=== PATIENT | female | born 1970 | race Caucasian/White ===

== ENCOUNTER 2024-12-13 04:40 | Inpatient (IN) | payer OTHER ==
[~2024-12-13] VITALS: Ht 157.5 cm; Wt 111.1 kg
[2024-12-13] MEDS ORDERED: hydrALAZINE HCL IV 20 MG VIAL ONE (05:25)
[2024-12-13] MEDS: hydrALAZINE HCL IV 20 MG VIAL IV ONE (05:29)
[2024-12-13 05:37] LABS: BASOPHILS # (AUTO) 0.1 K/uL (0.0-0.2); BASOPHILS % (AUTO) 1.2 % (0.0-2.0); EOSINOPHILS % (AUTO) 0.5 % (0.0-6.0); HEMATOCRIT 46 % (33-45); HEMOGLOBIN 15.4 g/dL (11.5-14.8); LYMPHOCYTES # (AUTO) 1.1 K/uL (0.8-4.8); LYMPHOCYTES % (AUTO) 15.2 % (20.0-44.0); MEAN CORPUSCULAR HEMOGLOBIN 30 PG (26.0-33.0); MEAN CORPUSCULAR HGB CONC 34 g/dl (31.0-36.0); MEAN CORPUSCULAR VOLUME 89 fL (82-100); MONOCYTES # (AUTO) 0.4 K/uL (0.1-1.30); MONOCYTES % (AUTO) 6.2 % (2.0-12.0); NEUTROPHILS # (AUTO) 5.3 K/uL (1.8-8.9); NEUTROPHILS % (AUTO) 76.9 % (43.0-81.0); PLATELET COUNT (AUTO) 142 K/uL (150-450); RED BLOOD CELL COUNT(AUTO) 5.13 MIL/uL (4.0-5.2); RED CELL DISTRIBUTION WIDTH 13.6 % (11.5-15.0); WHITE BLOOD COUNT (AUTO) 6.9 K/uL (4.3-11.0)
[2024-12-13 05:48] LABS: CALCIUM, SERUM 8.4 mg/dL (8.5-10.1); CREATININE 0.7 mg/dL (0.6-1.3); POTASSIUM 3.5 mmol/L (3.5-5.1)
[2024-12-13 06:00] LABS: ALBUMIN 3.7 g/dL (3.4-5.0); BILIRUBIN,TOTAL 0.5 mg/dL (0.2-1.0); TOTAL PROTEIN, SERUM 7.3 g/dL (6.4-8.2)
[2024-12-13 06:44] LABS: ABG BASE EXCESS -3.3 mmol/L (-2.0-3.0); ABG OXYGEN SATURATION 92.8 % (94.0-98.0); ABG PCO2 29.7 mmHg (32.0-45.0); ABG PH 7.437 (7.350-7.450); ABG PO2 65.6 mmHg (83.0-108.0); ABG TOTAL HEMOGLOBIN 15.1 G/dL (12.0-16.0); COHb 0.1 % (0.5-1.5); MetHb 0.2 % (0.0-1.5); O2Hb 92.5 % (94.0-97.0); SITE, ABG RIGHT RADIAL
[2024-12-13 08:23] LABS: APPEARANCE,URINE CLEAR (CLEAR); BILIRUBIN,URINE NEGATIVE (NEGATIVE); BLOOD, URINE NEGATIVE Ery/uL (NEGATIVE); COLOR,URINE YELLOW (YELLOW); KETONES,URINE NEGATIVE (NEGATIVE); LEUKOCYTE ESTERASE ,URINE NEGATIVE (NEGATIVE); NITRITE, URINE NEGATIVE (NEGATIVE); PH,URINE 6.5 (5.0-8.0); PROTEIN,URINE 3+ mg/dl (NEGATIVE); UGLUCOSE TRACE mg/dL (NEGATIVE); UROBILINOGEN,URINE 0.2 EU/dL (0.2)
[2024-12-13] MEDS ORDERED: ENALAPRILAT INJ (1.25 MG/ML) 1.25 MG/ML VIAL IV ONE (08:25)
[2024-12-13] MEDS: ENALAPRILAT DIHYD. (2.5MG/2ML) 1.25 MG/ML VIAL IV ONE (08:28)
[2024-12-13 08:45] LABS: ADD URINE CULTURE YES; BACTERIA,URINE Few /HPF (None Seen); RBC,URINE 0-2 /HPF (0-2)
[2024-12-13] MEDS ORDERED: AMLODIPINE BESYLATE 10 MG TABLET ONE (09:10)
[2024-12-13] MEDS: AMLODIPINE BESYLATE 5 MG TABLET PO ONE (09:14)
[2024-12-13] MEDS ORDERED: CEFTRIAXONE 1GM BAG (ER ONLY) 50 ML IV ONE (09:14)
[2024-12-13] MEDS: CEFTRIAXONE 1GM BAG (ER ONLY) 1 GM/50 ML PIGGYBACK IV ONE (09:14)
[2024-12-13] MEDS: CEFTRIAXONE 1 G in IV D5W 50 ML IV ONE (09:26)
[2024-12-13] MEDS ORDERED: ASPIRIN 325 MG TABLET ONE (10:26)
[2024-12-13] MEDS: ASPIRIN 325 MG TABLET PO ONE (10:28)
[2024-12-13 14:15] VITALS: BP 179/86; TEMP 98.1; O2SAT 98
[2024-12-13] MEDS: AZITHROMYCIN 250 MG TABLET PO SCH (14:35)
[2024-12-13] MEDS: NIFEdipine XL (30MG) 30 MG TAB PO SCH (14:36)
[2024-12-13] MEDS ORDERED: AMLO-213 PO (15:41)
[2024-12-13] MEDS ORDERED: LISI-768 PO (15:41)
[2024-12-13 16:00] VITALS: BP 146/75; TEMP 97.9; O2SAT 99
[2024-12-13 16:34] LABS: LACTIC ACID REFLEX 0.9 mmol/L (0.4-1.9)
[2024-12-13 16:41] LABS: BILIRUBIN,DIRECT 0.2 mg/dL (0.0-0.2)
[2024-12-13] MEDS ORDERED: hydrALAZINE HCL 25 MG TABLET PO SCH (19:00)
[2024-12-13 20:00] VITALS: BP 131/49; TEMP 98.3; O2SAT 95
[2024-12-13] MEDS: FUROSEMIDE 40 MG/4 ML VIAL IV SCH (20:27)
[2024-12-13] MEDS: LISINOPRIL (10MG) 10 MG TABLET PO SCH (20:28)
[2024-12-13] MEDS: ATORVASTATIN 10 MG TABLET PO SCH (21:35)
[2024-12-14] VITALS: BP 169/64; TEMP 98.6; O2SAT 98
[2024-12-14 04:00] VITALS: BP 114/39; TEMP 98.4; O2SAT 96
[2024-12-14 07:02] LABS: BASOPHILS % (AUTO) 0.7 % (0.0-2.0); EOSINOPHILS # (AUTO) 0.1 K/uL (0.0-0.7); EOSINOPHILS % (AUTO) 1.7 % (0.0-6.0); HEMATOCRIT 42 % (33-45); HEMOGLOBIN 14.3 g/dL (11.5-14.8); LYMPHOCYTES # (AUTO) 1.9 K/uL (0.8-4.8); LYMPHOCYTES % (AUTO) 28.2 % (20.0-44.0); MEAN CORPUSCULAR HEMOGLOBIN 31 PG (26.0-33.0); MEAN CORPUSCULAR HGB CONC 34 g/dl (31.0-36.0); MEAN CORPUSCULAR VOLUME 91 fL (82-100); MONOCYTES # (AUTO) 0.7 K/uL (0.1-1.30); MONOCYTES % (AUTO) 9.8 % (2.0-12.0); NEUTROPHILS % (AUTO) 59.6 % (43.0-81.0); PLATELET COUNT (AUTO) 160 K/uL (150-450); RED BLOOD CELL COUNT(AUTO) 4.65 MIL/uL (4.0-5.2); RED CELL DISTRIBUTION WIDTH 14.5 % (11.5-15.0); WHITE BLOOD COUNT (AUTO) 6.7 K/uL (4.3-11.0)
[2024-12-14 07:26] LABS: ALBUMIN 3.4 g/dL (3.4-5.0); BILIRUBIN,TOTAL 0.5 mg/dL (0.2-1.0); CALCIUM, SERUM 9.2 mg/dL (8.5-10.1); CREATININE 0.8 mg/dL (0.6-1.3); POTASSIUM 3.8 mmol/L (3.5-5.1); TOTAL PROTEIN, SERUM 6.5 g/dL (6.4-8.2)
[2024-12-14 07:30] VITALS: BP 151/69; TEMP 98.2; O2SAT 94
[2024-12-14] MEDS: ASPIRIN EC 81 MG TABLET.DR PO SCH (08:21)
[2024-12-14] MEDS: LISINOPRIL (10MG) 10 MG TABLET PO SCH (10:44)
[2024-12-14] MEDS: NIFEdipine XL (30MG) 30 MG TAB PO SCH (18:46)
[2024-12-14 20:00] VITALS: BP 158/58; TEMP 98.4; O2SAT 98
[2024-12-14] MEDS: ATORVASTATIN 10 MG TABLET PO SCH (21:42)
[2024-12-15] VITALS: BP 141/69; TEMP 98.6; O2SAT 97
[2024-12-15 04:00] VITALS: BP 132/70; TEMP 98.2; O2SAT 97
[2024-12-15 08:00] VITALS: BP 140/72; TEMP 98.1; O2SAT 96
[2024-12-15 08:55] VITALS: BP 140/72
[2024-12-15] MEDS ORDERED: LISI10TA29 PO (09:15)
[2024-12-15] MEDS ORDERED: ATOR10TA PO (09:15)
[2024-12-15] MEDS ORDERED: NIFE-35 PO (09:15)
== END 2024-12-15 17:58 | disposition home or self-care (01) | DRG 280 ==
LOC: ER 04:44 → TELE 12:53
PROVIDERS: ADMIT Internal Medicine; ATTEND Internal Medicine
DX: I11.0 Hypertensive heart disease with heart failure (principal); I50.31 Acute diastolic (congestive) heart failure; I21.A1 Myocardial infarction type 2; Z68.41 Body mass index [BMI] 40.0-44.9, adult; N17.9 Acute kidney failure, unspecified; I16.0 Hypertensive urgency; I48.0 Paroxysmal atrial fibrillation; E66.9 Obesity, unspecified; E78.5 Hyperlipidemia, unspecified; I27.20 Pulmonary hypertension, unspecified; Z95.0 Presence of cardiac pacemaker; R74.01 Elevation of levels of liver transaminase levels; Z20.822 Contact with and (suspected) exposure to COVID-19; I95.9 Hypotension, unspecified; Z91.199 Patient's noncompliance with other medical treatment and regimen due to unspecified reason
CPT/HCPCS: 36415; 36600; 71045-TC; 76700-TC; 80053-TC; 80061-TC; 81001; 82248-TC; 82803-TC; 83605-TC; 83880; 84484-TC; 85025-TC; 87040-TC; 87081-TC; 87086-TC; 93307-TC; G0378; J0360; J0696; J1940; J3490; J7060